=== PATIENT | male | born 1990 | race Caucasian/White ===

== ENCOUNTER 2017-02-06 20:06 | Emergency (ER) | payer BC ==
[~2017-02-06] VITALS: Ht 172.7 cm; Wt 83.1 kg
[2017-02-06 20:18] VITALS: TEMP 36.9; Ht 172.7 cm; Wt 83.1 kg
[2017-02-06 21:19] VITALS: O2SAT 98
[2017-02-06] MEDS ORDERED: KETOROLAC TROMETHAMINE 30 MG/ML VIAL IV STA ×2 (21:27→22:06)
[2017-02-06 21:32] LABS: BASO % 0.2 %; BASO ABS # 0.02 K/uL (0-0.2); COMPLETE YES; HEMATOCRIT 45.2 % (42-52); IG% 0.2 %; LYMPH ABS # 1.89 K/uL (1.2-3.4); MEAN CELL VOLUME 85.4 fL (80-100); MEAN CORPUSCULAR HEMOGLOBIN 29.9 pg (25-34); MEAN PLATELET VOLUME 11.1 fL (7.4-10.4); MONO % 5.8 %; NEUT % 72.8 %; PLATELET COUNT 230 K/uL (130-400); RED BLOOD COUNT 5.29 M/uL (4.7-6.1); WHITE BLOOD COUNT 9.47 K/uL (4.8-10.8)
[2017-02-06 21:40] LABS: PARTIAL THROMBOPLASTIN RATIO 1.1; PROTHROMBIN TIME (PATIENT) 11.2 SECONDS (9.0-12.0)
[2017-02-06 21:44] LABS: POINT OF CARE TROPONIN I < 0.030 ng/ml (0-0.045)
[2017-02-06 21:46] LABS: BUN/CREATININE RATIO 14.5 (10-20); CALCIUM 9.5 mg/dl (8.5-10.1); CREATININE 1.1 mg/dl (0.60-1.40); POTASSIUM 3.9 mmol/L (3.5-5.1)
[2017-02-06 22:46] VITALS: BP 117/86; PULSE 70; O2SAT 98
--- NOTE | 2017-02-07 01:06 | EMERGENCY ROOM VISIT NOTE ---
History Report prepared by Brenda: Carlos A Dc Under the Supervision of: Dr. Maury Thornton M.D. First contact with patient: 20:58 Chief Complaint: CARDIAC ASSESSMENT Stated Complaint: CHEST PAIN- [facility] REFERRED Nursing Triage Summary: Pt c/o burning pain under left arm left chest for the past 3 weeks, now worsening. denies SOB See at [place], had Cxray, EKG. Neg, so sent here for eval. History of Present Illness The patient is a 26 year old male who presents to the Emergency Room with complaints of intermittent chest pain for the past three weeks which hurts more when laying down. He states that it hurt mostly at night, and was okay in the morning. He states that he started to lift weights two weeks ago, and it started to get worse. He additionally states that he went for a run today, and it got bad. He does state, however, that exertion does not make his pain worse. He states that he went to [facility] earlier and had an EKG and chest x- ray done, and they told him to come to the ED for evaluation. The patient states that he occasionally gets a burning pain in his neck. He states that he does not notice the pain while lifting or running, and it happens while laying down and sitting. The patient denies any shortness of breath, recent sickness, fevers, leg pain or swelling, being recently bed-ridden, recent long travels, smoking, or any active medical problems. The patient states that he has a family history of high cholesterol with his dad and his grandpa had a heart attack in his 70s. Source of History: patient Onset: three weeks Position: chest Timing: intermittent Modifying Factors (Worsening): other (laying down ) Associated Symptoms: + neck pain, No fevers, No SOB Review of Systems See HPI for pertinent positives & negatives. A total of 10 systems reviewed and were otherwise negative. Past Medical & Surgical Surgical Problems: (1) [place] teeth extracted Family History Heart disease Social History Smoking Status: Never Smoker Marital Status: in relationship Housing Status: lives with significant other Occupation Status: employed Current/Historical Medications No Active Prescriptions or Reported Meds Allergies Coded Allergies: No Known Allergies (Unverified , 02/06/17) Physical Exam Vital Signs Date Time Temp Pulse Resp B/P (MAP) Pulse Ox O2 Delivery O2 Flow Rate FiO2 02/06/17 22:46 70 18 117/86 98 Room Air 02/06/17 21:19 98 Room Air 02/06/17 20:58 62 02/06/17 20:21 97 Room Air 02/06/17 20:18 36.9 71 18 128/75 97 Room Air Physical Exam Constitutional: Vital signs reviewed. Eyes: Pupils are equal round reactive to light. Conjunctiva are noninjected. ENT: Pharynx is clear without erythema or exudate. Mucous membranes are moist. Neck supple without meningeal signs. Respiratory: Clear to auscultation bilaterally. Breath sounds are equal bilaterally. Cardiovascular: Regular rate and rhythm. No rubs or gallops. GI: Soft, nondistended and nontender. Bowel sounds are present. Musculoskeletal: No peripheral edema. No lower extremity tenderness. Integumentary: No cyanosis. Neurological: The patient is awake and alert. No focal deficits. Psychiatric: Normal affect. Medical Decision & Procedures ER Provider Diagnostic Interpretation: The patient's chest x-ray from [facility] showed no pneumothorax or acute cardiopulmonary process. Laboratory Results 02/06/17 21:15 Red Blood Count 5.29, Mean Corpuscular Volume 85.4, Mean Corpuscular Hemoglobin 29.9, Mean Corpuscular Hemoglobin Concent 35.0, Mean Platelet Volume 11.1, Neutrophils (%) (Auto) 72.8, Lymphocytes (%) (Auto) 20.0, Monocytes (%) (Auto) 5.8, Eosinophils (%) (Auto) 1.0, Basophils (%) (Auto) 0.2, Neutrophils # (Auto) 6.90, Lymphocytes # (Auto) 1.89, Monocytes # (Auto) 0.55, Eosinophils # (Auto) 0.09, Basophils # (Auto) 0.02 02/06/17 21:15 Test 02/06/17 21:15 02/06/17 21:25 White Blood Count 9.47 K/uL (4.8-10.8) Red Blood Count 5.29 M/uL (4.7-6.1) Hemoglobin 15.8 g/dL (14.0-18.0) Hematocrit 45.2 % (42-52) Mean Corpuscular Volume 85.4 fL (80-100) Mean Corpuscular Hemoglobin 29.9 pg (25-34) Mean Corpuscular Hemoglobin Concent 35.0 g/dl (32-36) Platelet Count 230 K/uL (130-400) Mean Platelet Volume 11.1 fL (7.4-10.4) Neutrophils (%) (Auto) 72.8 % Lymphocytes (%) (Auto) 20.0 % Monocytes (%) (Auto) 5.8 % Eosinophils (%) (Auto) 1.0 % Basophils (%) (Auto) 0.2 % Neutrophils # (Auto) 6.90 K/uL (1.4-6.5) Lymphocytes # (Auto) 1.89 K/uL (1.2-3.4) Monocytes # (Auto) 0.55 K/uL (0.11-0.59) Eosinophils # (Auto) 0.09 K/uL (0-0.5) Basophils # (Auto) 0.02 K/uL (0-0.2) RDW Standard Deviation 40.1 fL (36.4-46.3) RDW Coefficient of Variation 12.8 % (11.5-14.5) Immature Granulocyte % (Auto) 0.2 % Immature Granulocyte # (Auto) 0.02 K/uL (0.00-0.02) Prothrombin Time 11.2 SECONDS (9.0-12.0) Prothromb Time International Ratio 1.0 (0.9-1.1) Activated Partial Thromboplast Time 27.6 SECONDS (21.0-31.0) Partial Thromboplastin Ratio 1.1 Anion Gap 5.0 mmol/L (3-11) Est Creatinine Clear Calc Drug Dose 107.8 ml/min Estimated GFR () 107.6 Estimated GFR (Non- 92.8 BUN/Creatinine Ratio 14.5 (10-20) Calcium Level 9.5 mg/dl (8.5-10.1) Bedside D-Dimer 107 ng/mlFEU (0-450) Bedside Troponin I < 0.030 ng/ml (0-0.045) Laboratory results as reviewed by me. Medications Administered Medications (Trade) Dose Ordered Sig/Myron Route Start Time Stop Time Status Last Admin Dose Admin Ketorolac Tromethamine (Toradol Inj) 10 mg NOW STAT IV 02/06/17 21:27 02/06/17 21:28 DC 02/06/17 21:41 10 MG Ketorolac Tromethamine (Toradol Inj) 10 mg NOW STAT IV 02/06/17 22:06 02/06/17 22:08 DC 02/06/17 22:45 10 MG ECG Indication: chest pain Rate (beats per minute): 68 Rhythm: normal sinus Findings: no acute ischemic change, no ectopy ED Course 2057: The patient was evaluated in room B11. A complete history and physical exam was performed. 2126: Toradol Inj 10mg IV 2205: Toradol Inj 10mg IV 2236: I discussed the test results with the patient, and he is going to follow up with his doctor. Medical Decision this is a 26-year-old male presents with chest pain.differential diagnosis includes, pneumothorax, pleurisy, GERD, strain, pulmonary embolism, pericarditis. I did perform a limited focused review of portions of the patient 's old chart on the electronic medical record. The patient has had no recent pertinent visits to this hospital. I did evaluate the patient as noted above. IV access was established. The patient was placed on a continuous cardiac nurse specialist. I did treat the patient with Toradol IV. I did order and personally review the patient's 12-lead EKG as described above. He has no acute ischemic changes. A chest x-ray from urgent care per my interpretation does not demonstrate any pneumothorax or acute cardiopulmonary process. I did order and review the patient's blood work as noted in the electronic medical record. D-dimer and troponin are negative. I did discuss the test results with the patient. At this time the cause of his symptoms are unclear. He was advised to avoid exercise and exertion until cleared by his doctor. He stated he would follow up with his doctor for further evaluation. He was discharged in good condition. He was given return instructions as outlined below. Medication Reconcilliation Current Medication List: was personally reviewed by me Blood Pressure Screening Patient's blood pressure: Normal blood pressure Impression Primary Impression: Left sided chest pain Scribe Attestation The scribe's documentation has been prepared under my direct and personally reviewed by me in its entirety. I confirm that the note above accurately reflects all work, treatment, procedures, and medical decision making performed by me. Departure Information Dispostion Home / Self-Care Prescriptions No Active Prescriptions or Reported Meds Referrals No Doctor, Assigned (PCP) Forms IMPORTANT VISIT INFORMATION Patient Instructions ED Chest Pain Atypical Unkn Cause, My [facility] Additional Instructions You have been examined and treated today on an emergency basis only. This is not a substitute for, or an effort to provide, complete comprehensive medical care. It is impossible to recognize and treat all injuries or illnesses in a single emergency department visit. It is therefore important that you follow up closely with your physician. Call as soon as possible for an appointment. Return for worsening symptoms or if you develop fever, vomiting, profuse sweating, lightheadedness or any other concerning symptoms. Avoid any exercise or weight lifting until cleared by your doctor.
== END 2017-02-06 22:54 | disposition home or self-care (01) ==
LOC: C.EDB 20:08
DX: R07.9 Chest pain, unspecified (principal); Z82.49 Family history of ischemic heart disease and other diseases of the circulatory system